=== PATIENT | male | born 1960 | race African-American/Black ===

== ENCOUNTER 2016-12-10 19:25 | Inpatient (IN) | payer OTHER ==
[~2016-12-10] VITALS: Ht 177.8 cm; Wt 85.3 kg
--- NOTE | 2016-12-10 19:35 | NUR ---
To bed 8 a 56 yo male bibself with c/o LLO abdl cramps s/p "swallowed a toothpick 4 days ago."AAOx4, ambulatory. No s/s of acute distress. Breathing even and unlabored. Skin warm and dry. VSS. Gowned. Awaiting for er md barkley.
--- NOTE | 2016-12-10 19:35 | NUR ---
To bed 8 a 56 yo male bibself with c/o LLQ abdl cramps for 3 days, worse today, s/p swallowed a toothpick 4 days ago. Patient is aaox3, no s/s of acute distress. Breathing even and unlabored. Reports tenderness if palpated on the area at 10/10. Skin warm and dry. Comfort measures rendered. Awaiting for er md barkley.
[2016-12-10 19:53] LABS: BASOPHILS # (AUTO) 0.1 /CMM (0.0-0.2); BASOPHILS % (AUTO) 1.1 % (0.0-2.0); EOSINOPHILS # (AUTO) 0.3 /CMM (0.0-0.7); HEMATOCRIT 45 % (39-51); HEMOGLOBIN 14.5 g/dL (13.5-17.5); LYMPHOCYTES # (AUTO) 0.9 /CMM (0.8-4.8); LYMPHOCYTES % (AUTO) 9.8 % (20.0-44.0); MEAN CORPUSCULAR HEMOGLOBIN 26 PG (26.0-33.0); MEAN CORPUSCULAR HGB CONC 33 g/dl (31.0-36.0); MEAN CORPUSCULAR VOLUME 79 fL (80-96); MONOCYTES # (AUTO) 0.5 /CMM (0.1-1.30); NEUTROPHILS # (AUTO) 7.3 /CMM (1.8-8.9); NEUTROPHILS % (AUTO) 80.1 % (43.0-81.0); PLATELET COUNT (AUTO) 199 /CMM (150-450); RED BLOOD CELL COUNT(AUTO) 5.62 MIL/uL (4.5-6.0); WHITE BLOOD COUNT (AUTO) 9.1 K/uL (4.3-11.0)
--- NOTE | 2016-12-10 19:59 | NUR ---
Patient in ct.
[2016-12-10 20:03] LABS: CALCIUM, SERUM 8.7 mg/dL (8.5-10.1); CREATININE 1.3 mg/dL (0.6-1.3); POTASSIUM 4.3 mmol/L (3.5-5.1)
[2016-12-10 20:09] LABS: ALBUMIN 3.4 g/dL (3.4-5.0); BILIRUBIN,DIRECT 0.2 mg/dL (0.0-0.2); BILIRUBIN,TOTAL 1.1 mg/dL (0.2-1.0); TOTAL PROTEIN, SERUM 7.3 g/dL (6.4-8.2)
--- NOTE | 2016-12-10 21:24 | NUR ---
CALLED (ROOFING FOREMAN SURGEON), TRANSFERRED CALL TO
--- NOTE | 2016-12-10 21:29 | NUR ---
CALLED NURSING SUP. FOR MS BED
--- NOTE | 2016-12-10 21:29 | NUR ---
DR.TIM MIRIAM JARVIS BACKHOE OPERATOR
[2016-12-10] MEDS ORDERED: HYDROMORPHONE 1 MG/1 ML DISP.SYRIN IV ONE (21:30)
[2016-12-10] MEDS ORDERED: IV NS 0.9% 1,000 ML IV ONE (21:30)
[2016-12-10] MEDS ORDERED: FLAGYL/NS RTU 500 MG/100 ML PIGGYBACK IV ONE (21:30)
[2016-12-10] MEDS ORDERED: CEFTRIAXONE 1GM BAG (ER ONLY) 1 GM/50 ML PIGGYBACK IV ONE (21:30)
[2016-12-10] MEDS ORDERED: ONDANSETRON HCL/PF - ER 4 MG/2 ML VIAL IV ONE (21:30)
[2016-12-10] MEDS ORDERED: ONDANSETRON HCL/PF 4 MG/2 ML VIAL ONE (21:39)
[2016-12-10] MEDS ORDERED: IV SET PRIMARY 1 EA INFUS.SET MC ONE (21:39)
[2016-12-10] MEDS ORDERED: HYDROMORPHONE 1 MG/1 ML DISP.SYRIN ONE (21:39)
[2016-12-10] MEDS ORDERED: METRONIDAZOLE 500MG/ NS 100ML 100 ML IV ONE (21:39)
[2016-12-10] MEDS ORDERED: IV SET PRIMARY PUMP SET 1 EA INFUS.SET MC ONE ×2 (21:39→22:58)
[2016-12-10] MEDS ORDERED: IV NS 0.9% 1,000 ML ONE (21:39)
--- NOTE | 2016-12-10 22:00 | NUR ---
Report given to Lady Cole for admission.
[2016-12-10 22:15] VITALS: BP 162/87
--- NOTE | 2016-12-10 22:20 | NUR ---
Endorsed to Lady KAPLAN the order of Dr Orona Ceftriaxone 1gm IVPB One time.
--- NOTE | 2016-12-10 22:21 | NUR ---
Transported patient to [place] [id number], no incident noted. Patient reported reduced pain to 2/10.
[2016-12-10 22:43] LABS: INR 1.04 (0.87-1.13); PROTHROMBIN TIME 11.1 SECS (9.5-12.7)
[2016-12-10] MEDS ORDERED: CEFTRIAXONE 1 G VIAL ONE (22:51)
[2016-12-10] MEDS ORDERED: IV D5W 0 ML IV ONE (22:52)
[2016-12-10] MEDS ORDERED: IV D5W 100 ML IV ONE (22:53)
[2016-12-10] MEDS ORDERED: SECONDARY IV SET 1 EA INFUS.SET MC ONE (22:58)
[2016-12-10] MEDS ORDERED: IV D5/0.45 NACL 1,000 ML IV ONE (22:58)
[2016-12-10] MEDS ORDERED: PANTOPRAZOLE 40 MG VIAL ONE (22:59)
[2016-12-10 23:00] VITALS: BP 102/87
[2016-12-10] MEDS ORDERED: ZOLPIDEM TARTRATE 5 MG TABLET PO PRN (23:00)
[2016-12-10] MEDS ORDERED: METRONIDAZOLE 500MG/ NS 100ML 500 MG in PREMIX 1 EA IV SCH (23:00)
[2016-12-10] MEDS ORDERED: CEFTRIAXONE 2 G in IV D5W 100 ML IV SCH (23:00)
[2016-12-10] MEDS ORDERED: ONDANSETRON HCL/PF 4 MG/2 ML VIAL IVP PRN (23:00)
--- NOTE | 2016-12-10 23:00 | NUR ---
RN NOTE; ADMITTED A 56Y/O M , A, OX4. BREATHING EVENLY. NO SOB. NO DISTRESS. SKIN WARM AND DRY. RECEIVING IVF AND IV FLAGYL FROM ER. INFUSING WELL W/ NO A/R. IV SITE INTACT. STILL W/ C/O ABD PAIN. NEEDS ATTENDED. ASSISTED PT TO THE BED. VS: WNL. CALL LIGHT WITHIN REACH. WILL CONT TO MONITOR AND WILL F/U W/ MD'S ORDER.
[2016-12-10] MEDS: IV D5/0.45 NACL 1,000 ML IV PRN (23:05)
[2016-12-10] MEDS: PANTOPRAZOLE 40 MG VIAL IV SCH (23:07)
[2016-12-10] MEDS ORDERED: BUPIVACAINE 0.5 % PF 150 MG/30 ML VIAL ONE (23:14)
[2016-12-10] MEDS ORDERED: LIDOCAINE 1% INJ 50 ML MDV IJ ONE (23:14)
--- NOTE | 2016-12-10 23:39 | NUR ---
RN NOTE; PT WAS SEEN AND AND EXAMINED BY DR. NOEL AT THE BED SIDE . PT REPORTED HAVING COKE DOWN STAIRS AT THE ER . SX WAS CANCELLED BY DR. DR NOEL DUE TO NON NPO STATUS . DR. NOEL EXPLAINED THE UPCOMING PROCEDURE AND RISKS VS. BENEFITS TO THE PT AT THE BED SIDE .
[2016-12-10] MEDS ORDERED: HYDROMORPHONE INJ 2 MG/ML DISP.SYRIN ONE (23:57)
[2016-12-11] MEDS: HYDROMORPHONE INJ 2 MG/ML DISP.SYRIN IV PRN ×8 (00:02→23:03)
--- NOTE | 2016-12-11 00:05 | NUR ---
DILAUDID 1MG GIVEN ORDERED FOR C/O SEVERE ABD. PAIN. WILL CONT TO MONITOR
[2016-12-11] MEDS ORDERED: HYDROMORPHONE INJ 2 MG/ML DISP.SYRIN ONE ×2 (03:10→06:02)
--- NOTE | 2016-12-11 03:21 | NUR ---
DILAUDID 1MG GIVEN ORDERED FOR C/O SEVERE ABD. PAIN. WILL CONT TO MONITOR
--- NOTE | 2016-12-11 06:17 | NUR ---
DILAUDID 1MG GIVEN ORDERED FOR C/O SEVERE ABD. PAIN. WILL CONT TO MONITOR
[2016-12-11 06:37] LABS: BASOPHILS % (AUTO) 0.4 % (0.0-2.0); EOSINOPHILS # (AUTO) 0.3 /CMM (0.0-0.7); HEMATOCRIT 38 % (39-51); HEMOGLOBIN 12.6 g/dL (13.5-17.5); LYMPHOCYTES # (AUTO) 0.9 /CMM (0.8-4.8); MEAN CORPUSCULAR HEMOGLOBIN 26 PG (26.0-33.0); MEAN CORPUSCULAR HGB CONC 33 g/dl (31.0-36.0); MEAN CORPUSCULAR VOLUME 77 fL (80-96); MONOCYTES # (AUTO) 0.6 /CMM (0.1-1.30); NEUTROPHILS # (AUTO) 5.3 /CMM (1.8-8.9); NEUTROPHILS % (AUTO) 74.6 % (43.0-81.0); PLATELET COUNT (AUTO) 182 /CMM (150-450); RDW COEFFICIENT OF VARIATION 14.7 (11.5-15.0); RED BLOOD CELL COUNT(AUTO) 4.92 MIL/uL (4.5-6.0); WHITE BLOOD COUNT (AUTO) 7.1 K/uL (4.3-11.0)
[2016-12-11 06:44] LABS: ALBUMIN 2.9 g/dL (3.4-5.0); CALCIUM, SERUM 7.9 mg/dL (8.5-10.1); CREATININE 1.1 mg/dL (0.6-1.3); POTASSIUM 3.7 mmol/L (3.5-5.1); TOTAL PROTEIN, SERUM 6.5 g/dL (6.4-8.2)
[2016-12-11 06:49] LABS: THYROID STIMULATING HORMONE 2.658 uIU/mL (0.358-3.74)
--- NOTE | 2016-12-11 06:57 | NUR ---
RN NOTE' PT IN BED DOZING INTERMITTENT. W/ ON AND OFF C/O ABD PAIN. DILAUDID GIVEN ORDERED PER PT'S REQUEST W/ EFFECT. ASSISTED W/ ADLS. CALL LIGHT WITHIN REACH. WILL CONT TO MONITOR AND WILL ENDORSE TO AM SHIFT FOR SARWAT.
[2016-12-11] MEDS ORDERED: ATEN25TA PO (07:45)
[2016-12-11] MEDS ORDERED: ENAL10TA PO (07:45)
[2016-12-11] MEDS ORDERED: HYDR25TA4 PO (07:45)
[2016-12-11] MEDS ORDERED: ASPI81TA2 PO (07:45)
[2016-12-11 08:00] VITALS: BP 162/99
--- NOTE | 2016-12-11 08:00 | NUR ---
MS RN NOTES PATIENT IN BED RESTING NO SOB OR ACUTE DISTRESS NOTED. IV ON RIGHT AC INTACT PATIENT. BED IN LOW LOCKED POSITION. WILL CONTINUE TO MONITOR.
[2016-12-11] MEDS: PANTOPRAZOLE 40 MG VIAL IV SCH (08:44)
[2016-12-11] MEDS ORDERED: METRONIDAZOLE 500MG/ NS 100ML 500 MG in PREMIX 1 EA IV SCH (09:00)
[2016-12-11] MEDS: METRONIDAZOLE 500MG/ NS 100ML 500 MG in PREMIX 1 EA IV SCH ×3 (09:08→20:03)
--- NOTE | 2016-12-11 12:00 | NUR ---
MS RN NOTES PATIENT SEEN AND EVALUATED BY LAURA KAYE CONFIGURATION TECHNICIAN ORDERS NOTED AND CARRIED OUT.
[2016-12-11] MEDS ORDERED: HYDROCORTISONE 1% CREAM 28.35 GM TUBE TP PRN (12:30)
--- NOTE | 2016-12-11 16:00 | NUR ---
MS RN NOTES PATIENT NOTED WITH BP OF 172/89 PULSE: 61 TEMP: 97.6, O2 SATURATION OF 99. ASYMPTOMATIC, CALL PACED TO LAURA CABRERA WAITING FOR CALL BACK.
[2016-12-11 16:02] VITALS: BP 172/89
[2016-12-11] MEDS: IV D5/0.45 NACL 1,000 ML IV PRN (16:14)
[2016-12-11] MEDS: ASPIRIN 81 MG TAB.CHEW PO SCH (18:30)
--- NOTE | 2016-12-11 18:30 | NUR ---
MS RN NOTES CALL RECEIVED FROM LAURA CABRERA ORDERS NOTED TO CONTINUE HOME BP MEDICATIONS. NOTED AND CARRIED OUT. OK TO TAKE BP MEDICATIONS WITH SIP OF WATER.
[2016-12-11] MEDS: ATENOLOL 25 MG TABLET PO SCH (18:44)
[2016-12-11] MEDS: ENALAPRIL MALEATE (10 MG) 10 MG TABLET PO SCH (18:44)
[2016-12-11] MEDS: HYDROCHLOROTHIAZIDE 25 MG TABLET PO SCH (18:44)
--- NOTE | 2016-12-11 19:19 | NUR ---
MS RN NOTES PATIENT IN BED RESTING NO SOB OR ACUTE DISTRESS NOTED. ALL DUE MEDICATIONS GIVEN. ALL NEEDS MET ENDORSED CARE TO PM SHIFT, IV ON LEFT AC PATENT INTACT.
--- NOTE | 2016-12-11 19:55 | NUR ---
RN NOTES RECEIVED PX AWAKE, ALERT, ORIENTED X 3, AMBULATORY, COMPLAINING OF ABDOMINAL PAIN LEFT SIDED ACHING 10/10, IRRITABLE, SEEN TALKING WITH VISITORS; INDEPENDENTLY MOVING BY SELF IN BED; PIV PATENT AND INTACT; DENIED SOB, N/V, DIZZINESS; DISCUSSED PLAN OF CARE; REINFORCED THE NEED FOR NPO FOR SURGERY TOMORROW. DILAUDID GIVEN.
[2016-12-11 20:00] VITALS: BP 149/85
--- NOTE | 2016-12-11 21:56 | NUR ---
RN NOTES SEEN BY DR. NOEL, SPOKE WITH PX, KEPT PX NPO; ORDERED FOR CT ABD/PELVIS WITHOUT CONTRAST, HEAD RESIDENT MADE AWARE.
--- NOTE | 2016-12-11 22:30 | NUR ---
RN NOTES CT ABD/PELVIS WITHOUT CONTRAST DONE, PROCEDURE TOLERATED.
--- NOTE | 2016-12-11 23:00 | NUR ---
RN NOTES PX COMPLAINED OF PAIN LEFT ABD, CRAMPING 10/10, DILAUDID GIVEN IV.
[2016-12-11] MEDS: CEFTRIAXONE 2 G in IV D5W 100 ML IV SCH (23:04)
[2016-12-12] VITALS (9 sets, daily range): BP systolic 113–173; BP diastolic 58–88
--- NOTE | 2016-12-12 00:42 | NUR ---
RN NOTES CONDITION AND NEURO STATUS UNCHANGED; PX DENIED PAIN, SOB, N/V; CT ABD RESULT PENDING.
[2016-12-12] MEDS: HYDROMORPHONE INJ 2 MG/ML DISP.SYRIN IV PRN ×5 (05:16→19:37)
[2016-12-12] MEDS: METRONIDAZOLE 500MG/ NS 100ML 500 MG in PREMIX 1 EA IV SCH ×3 (05:20→20:50)
--- NOTE | 2016-12-12 05:27 | NUR ---
RN NOTES COMPLAINED OF LEFT SIDED SHARP ABDOMINAL PAIN 10/10 WITH FACIAL GRIMACE, DILAUDID GIVEN IV, 5 MIN AFTER PX VERBALIZED RELIEF OF PAIN; NEW PIV TO RIGHT FOREARM G20 PATENT AND INTACT; OLD PIV WITHOUT BLOOD RETURN, DISCONTINUED.
--- NOTE | 2016-12-12 06:12 | NUR ---
RN NOTES CONDITION AND NEURO STATUS UNCHANGED; DENIED PAIN, SOB, N/V; EARLY AM NEEDS ATTENDED; NO SKIN BREAKDOWN; PIV REMAINED PATENT AND INTACT; REINFORCED THE NEED TO REMAIN NPO. WILL ENDORSE TO NEXT RN.
--- NOTE | 2016-12-12 08:00 | NUR ---
MS RN NOTES PATIENT IN BED RESTING NO SOB OR ACUTE DISTRESS NOTED. PATIENT WITH PERIPHERAL IV ON RIGHT FOREARM INTACT PATENT WITH IV FLUIDS RUNNING PRESCRIBED. BED IN LOW LOCKED POSITION. CALL LIGHT WITHIN REACH. WILL CONTINUE TO MONITOR.
[2016-12-12] MEDS: PANTOPRAZOLE 40 MG VIAL IV SCH (08:21)
[2016-12-12] MEDS: ENALAPRIL MALEATE (10 MG) 10 MG TABLET PO SCH (09:00)
[2016-12-12] MEDS: ASPIRIN 81 MG TAB.CHEW PO SCH (09:00)
[2016-12-12] MEDS: HYDROCHLOROTHIAZIDE 25 MG TABLET PO SCH (09:00)
[2016-12-12] MEDS: ATENOLOL 25 MG TABLET PO SCH (09:00)
[2016-12-12] MEDS ORDERED: HYDROMORPHONE INJ 2 MG/ML DISP.SYRIN ONE (09:27)
[2016-12-12] MEDS ORDERED: MIDAZOLAM HCL 2 MG/2ML VIAL ONE (09:27)
[2016-12-12] MEDS ORDERED: FENTANYL PF 100MCG/2ML AMPUL ONE (09:28)
[2016-12-12] MEDS ORDERED: CLINDAMYCIN 900 MG/6 ML VIAL ONE (09:28)
[2016-12-12] MEDS ORDERED: SUCCINYLCHOLINE CHLORIDE 20 MG/ML VIAL ONE (09:28)
[2016-12-12] MEDS ORDERED: ROCURONIUM BROMIDE 50 MG/5 ML ONE (09:28)
[2016-12-12] MEDS ORDERED: DESFLURANE 240 ML BOTTLE IH ONE (12:13)
--- NOTE | 2016-12-12 12:20 | NUR ---
MS RN NOTES PATIENT TRANSFERRED TO OR FOR SCHEDULED SURGERY.
[2016-12-12] MEDS ORDERED: BUPIVACAINE MPF 0.5% W/EPI INJ 30 ML VIAL ONE (13:10)
[2016-12-12] MEDS ORDERED: EPINEPHRINE (1:1000) MDV 30 MG/30ML VIAL ONE (13:35)
--- NOTE | 2016-12-12 14:00 | NUR ---
MS RN NOTES PATIENT RETURNED FROM SURGERY ALERT, CONFUSED. IN STABLE CONDITION. NO SOB OR ACUTE DISTRESS NOTED. DRESSING INTACT PATENT ON ABDOMEN. WITH MARION DRAIN DRAINING SANGUINEOUS DRAINAGE. WILL CONTINUE TO MONITOR CLOSELY. VS WNL.
[2016-12-12] MEDS ORDERED: IV LR 1000 ML 1,000 ML ONE (15:27)
[2016-12-12] MEDS ORDERED: HYDROCODONE/APAP 5/325MG 1 EACH TABLET PO PRN (16:00)
[2016-12-12] MEDS ORDERED: IV SET PRIMARY PUMP SET 1 EA INFUS.SET MC ONE (16:05)
[2016-12-12] MEDS: IV LR 1000 ML 1,000 ML IV PRN (16:15)
[2016-12-12] MEDS: DOCUSATE SODIUM 100 MG CAPSULE PO SCH (17:00)
--- NOTE | 2016-12-12 18:56 | NUR ---
MS RN NOTED PATIENT IN BED RESTING NO SOB OR ACUTE DISTRESS. PATIENT IS ALERT, ORIENTED X3 WITH NO CONFUSION. PATIENT RETURNED TO BASELINE STATUS. IV INTACT PATENT ON RIGHT FOREARM. ALL DUE MEDICATIONS GIVEN. ALL NEEDS MET. WILL ENDORSE TO PM SHIFT SARWAT.
--- NOTE | 2016-12-12 19:45 | NUR ---
MS/RN OPENING NOTES PT AWAKE, A/OX4. ON ROOM AIR, NO SOB OR DISTRESS NOTED. COMPLAINING OF SHARP PAIN 8/10 TO INCISION SITE, EXACERBATED BY MOVEMENT. REQUESTING PRN PAIN MEDICATION. ADVISED HIM THAT WE NEED TO CHECK HIS VITALS SIGNS FIRST. PT VERBALIZED UNDERSTANDING. REMAINS ON NPO DIET, PT AWARE AND INFORMED HIM THAT HE WILL START CLEAR LIQUID DIET IN THE MORNING. IV TO RFA PATENT AND INTACT RUNNING IVF ORDERED. NO S/S OF INFILTRATION NOTED. BED IN LOW/LOCKED POSITION WITH CALL LIGHT IN REACH. BED RAILS UPX2. WILL CONTINUE TO MONITOR
[2016-12-12] MEDS ORDERED: CLINDAMYCIN 900 MG in IV D5W 50 ML IV SCH (21:00)
[2016-12-12] MEDS: HYDROCODONE/APAP 10/325MG 1 EA TABLET PO PRN (21:46)
--- NOTE | 2016-12-12 21:50 | NUR ---
MS/RN NOTES PT COMPLAINING OF PAIN 8/10 TO MEDIAL ABDOMEN. NORCO 10-325 OPENED BUT NOT ADMINISTERED TO PT DUE TO NPO STATUS. WASTED IN MED ROOM AND WITNESS BY RNNOÉ.
--- NOTE | 2016-12-12 22:14 | NUR ---
MS/RN NOTES PT COMPLAINING OF PAIN 04/08 AND IS REQUESTING SOMETHING FOR PAIN. INFORMED HIM THAT HIS NEXT DOSE IS IN 1 HOUR AND BECAME UPSET. HAS BEEN AGITATED SINCE HE CANNOT EAT OR DRINK ANYTHING. INFORMED STEVE PINEDA AND OKAY TO GIVE ONE TIME DOSE OF DILAUDID 1MG IV. ORDERS NOTED AND CARRIED OUT.
[2016-12-12] MEDS ORDERED: HYDROMORPHONE 1 MG/1 ML DISP.SYRIN ONE (22:23)
[2016-12-12] MEDS ORDERED: HYDROMORPHONE 1 MG/1 ML DISP.SYRIN IV ONE (22:30)
--- NOTE | 2016-12-12 23:00 | NUR ---
MS/RN NOTES PT IV SITE INFILTRATED. NEW IV INSERTED TO LEFT HAND #22. ONE TIME DOSE OF DILAUDID ADMINISTERED.
[2016-12-12] MEDS ORDERED: SECONDARY IV SET 1 EA INFUS.SET MC ONE (23:48)
[2016-12-12] MEDS: CEFTRIAXONE 2 G in IV D5W 100 ML IV SCH (23:53)
[2016-12-13] MEDS: HYDROMORPHONE INJ 2 MG/ML DISP.SYRIN IV PRN ×6 (02:40→23:27)
[2016-12-13 02:45] VITALS: BP 164/70
--- NOTE | 2016-12-13 02:46 | NUR ---
MS/RN NOTES PT COMPLAINING OF PAIN 8/10 TO ABDOMEN. ADMINISTERED PRN DILAUDID 1MG IV. RE=[phone], HR=[id number]
[2016-12-13] MEDS: IV LR 1000 ML 1,000 ML IV PRN (03:29)
[2016-12-13] MEDS: METRONIDAZOLE 500MG/ NS 100ML 500 MG in PREMIX 1 EA IV SCH ×3 (05:33→21:03)
--- NOTE | 2016-12-13 05:49 | NUR ---
MS/RN NOTES TRIED LOGGING INTO [employer]PUTER TO ADMINISTER SCHEDULED FLAGYL AND PRN DILAUDID. COMPUTER WAS NOT ACCEPTING MY PASSWORD AND EVENTUALLY A POP UP SHOWED SAYING THAT I CANNOT LOG IN UNTIL I HAVE CREATED A NEW PASSWORD. IT IS NOT AVAILABLE AT THIS TIME. RN, NOÉ OFFERED TO LET ME ADMINISTER THE MEDICATIONS THROUGH HER [employer] PORTAL. I AM ABLE TO COMPLETE MY CHARTING BECAUSE I REMAINED LOGGED IN TO THE COMPUTER AT NURSES STATION
[2016-12-13 06:16] LABS: BASOPHILS % (AUTO) 0.3 % (0.0-2.0); EOSINOPHILS % (AUTO) 0.4 % (0.0-6.0); HEMATOCRIT 40 % (39-51); LYMPHOCYTES # (AUTO) 0.8 /CMM (0.8-4.8); LYMPHOCYTES % (AUTO) 10.7 % (20.0-44.0); MEAN CORPUSCULAR HEMOGLOBIN 25 PG (26.0-33.0); MEAN CORPUSCULAR HGB CONC 32 g/dl (31.0-36.0); MEAN CORPUSCULAR VOLUME 78 fL (80-96); MONOCYTES # (AUTO) 0.4 /CMM (0.1-1.30); NEUTROPHILS # (AUTO) 6.1 /CMM (1.8-8.9); NEUTROPHILS % (AUTO) 83.6 % (43.0-81.0); PLATELET COUNT (AUTO) 238 /CMM (150-450); RDW COEFFICIENT OF VARIATION 14.6 (11.5-15.0); RED BLOOD CELL COUNT(AUTO) 5.15 MIL/uL (4.5-6.0); WHITE BLOOD COUNT (AUTO) 7.3 K/uL (4.3-11.0)
[2016-12-13 07:06] LABS: CALCIUM, SERUM 8.3 mg/dL (8.5-10.1); CREATININE 1.1 mg/dL (0.6-1.3); POTASSIUM 4.2 mmol/L (3.5-5.1)
--- NOTE | 2016-12-13 07:20 | NUR ---
MS/RN CLOSING NOTES PT AWAKE, A/OX3, ON ROOM AIR, NO SOB OR DISTRESS NOTED. NOTES PAIN TO BE 5/10 AT THIS TIME. MARION DRAIN EMPTIED WITH 25ML OF SANGUINOUS FLUID. IV TO LEFT HAND PATENT AND INTACT RUNNING IVF ORDERED. MADE PT COMFORTABLE THROUGHOUT SHIFT. PT LOOKING FORWARD TO ADVANCING DIET, IS AWARE OF CLEAR LIQUID DIET THIS AM. ALL NEEDS MET AND ATTENDED TO. BED IN LOW/LOCKED POSITION. CALL LIGHT IN REACH. ENDORSED TO AM SHIFT SARWAT.
[2016-12-13 08:00] VITALS: BP 155/82
--- NOTE | 2016-12-13 08:00 | NUR ---
MS RN NOTES PATIENT IN BED RESTING NO SOB OR ACUTE DISTRESS NOTED. IV INTACT ON LEFT HAND RUNNING PRESCRIBED FLUIDS. BED IN LOW LOCKED POSITION. CALL LIGHT WITHIN REACH. WILL CONTINUE TO MONITOR.
[2016-12-13] MEDS: ENALAPRIL MALEATE (10 MG) 10 MG TABLET PO SCH (08:37)
[2016-12-13] MEDS: HYDROCHLOROTHIAZIDE 25 MG TABLET PO SCH (08:37)
[2016-12-13] MEDS: DOCUSATE SODIUM 100 MG CAPSULE PO SCH ×2 (08:37→17:53)
[2016-12-13] MEDS: ASPIRIN 81 MG TAB.CHEW PO SCH (08:37)
[2016-12-13] MEDS: ATENOLOL 25 MG TABLET PO SCH (08:38)
[2016-12-13] MEDS: PANTOPRAZOLE 40 MG VIAL IV SCH (08:39)
--- NOTE | 2016-12-13 09:00 | NUR ---
MS RN NOTES PATIENT SEEN AND EVALUATED BY LAURA CABRERA NP. ORDERS NOTED AND CARRIED OUT.
[2016-12-13 16:00] VITALS: BP 136/79
--- NOTE | 2016-12-13 18:17 | NUR ---
MS RN NOTES PATIENT IN BED RESTING NO SOB OR ACUTE DISTRESS NOTED. IV INTACT PATENT ON LEFT HAND. ALL DUE MEDICATIONS GIVEN. ALL NEEDS MET. WILL ENDORSE TO PM SHIFT SARWAT.
--- NOTE | 2016-12-13 18:28 | NUR ---
MS RN NOTES PAIN MANAGED WITH PRN MEDICATIONS.
--- NOTE | 2016-12-13 19:14 | NUR ---
MS RN NOTES PATIENT SEEN BY DR. NOEL ORDERS NOTED AND CARRIED OUT.
--- NOTE | 2016-12-13 19:30 | NUR ---
MS RN NOTES RECEIVED AWAKE,SITTING ON EDGE OF BED,S/O EX LAP YESTERDAY BY DR NOEL.DRESSING INTACT AND DRY.WITH MARION DRAIN IN PLACE DRAINING SANGUINOUS OUTPUT.CLAIMED SHE'S IN PAIN 10/10 ON PAIN SCALE, IV DILAUDID NOT EFFECTIVE GIVEN AT 1753.FACIAL GRIMACE NOTED.ABLE TO FINISH CLEAR LIQUID DIET SERVED.CALL LIGHT IN REACH,NEEDS ANTICIPATED.
--- NOTE | 2016-12-13 19:35 | NUR ---
MS RN NOTES PAIN MANAGEMENT MEDICATED WITH NORCO 10/325MG 1TAB PO FOR PAIN 06/08,PER PATIENT REQUEST.WILL MONITOR FOR RELIEF.
[2016-12-13] MEDS: HYDROCODONE/APAP 10/325MG 1 EA TABLET PO PRN (19:36)
[2016-12-13 20:00] VITALS: BP 186/90
--- NOTE | 2016-12-13 21:00 | NUR ---
MS RN NOTES DUE FLAGYL 500MG IVPB HUNG
--- NOTE | 2016-12-13 22:55 | NUR ---
MS RN NOTES BP HIGH 186/90 AT 1999,PAIN MEDS ADMINISTERED,REPEAT BP AT 2255 WAS 195/91,PULSE 58.STEVE HERNÁNDEZ DNP MADE AWARE WITH NEW ORDERS NOTED AND CARRIED OUT.
[2016-12-13] MEDS ORDERED: hydrALAZINE HCL 50 MG TABLET PO PRN (23:00)
[2016-12-13] MEDS ORDERED: hydrALAZINE HCL 50 MG TABLET ONE (23:11)
--- NOTE | 2016-12-13 23:22 | NUR ---
MS RN NOTES MEDICATED WITH HYDRALAZINE HCL 50MG PO FOR BP 195/91 ORDERED PRN FOR SBP ABOVE 170.
--- NOTE | 2016-12-13 23:27 | NUR ---
MS RN NOTES PAIN MANAGEMENT C/O ABDOMINAL PAIN 8/10 ON PAIN SCALE,DILAUDID 1MG IVP GIVEN ORDERED FOR SEVERE PAIN.WILL MONITOR FOR RELIEF.
[2016-12-13] MEDS: CEFTRIAXONE 2 G in IV D5W 100 ML IV SCH (23:47)
--- NOTE | 2016-12-13 23:50 | NUR ---
MS RN NOTES DUE ROCEPHIN 2GM IVPB HUNG
[2016-12-14] MEDS: HYDROMORPHONE INJ 2 MG/ML DISP.SYRIN IV PRN ×5 (02:47→15:58)
--- NOTE | 2016-12-14 02:47 | NUR ---
MS RN NOTES PAIN MANAGEMENT AWAKE,C/O ABDOMINAL PAIN 9/10 ON PAIN SCALE,MEDICATED WITH DILAUDID 1MG IVP ORDERED.WILL MONITOR FOR RELIEF.
[2016-12-14] MEDS: METRONIDAZOLE 500MG/ NS 100ML 500 MG in PREMIX 1 EA IV SCH ×2 (04:58→13:07)
--- NOTE | 2016-12-14 05:00 | NUR ---
MS RN NOTES DUE FLAGYL 500MG IVPB HUNG
--- NOTE | 2016-12-14 06:33 | NUR ---
MS RN NOTES PAIN MANAGEMENT C/O ABDOMINAL PAIN,8/10 ON PAIN SCALE,DILAUDID 1MG IVP ORDERED.
--- NOTE | 2016-12-14 07:15 | NUR ---
RN NOTE: RECEIVED PATIENT WHILE RESTING IN BED, A/OX 3. PATIENT BREATHING EVEN AND UNLABORED ON ROOM AIR. NO SOB. NO DISTRESS/DISCOMFORT AT THE MOMENT. PATIENTS NEEDS ATTENDED TO, SAFETY MEASURES IN PLACE, WILL CONTINUE TO MONITOR.
--- NOTE | 2016-12-14 07:25 | NUR ---
MS KAPLAN NOTES SLEPT 8 HOURS AT NIGHT.TYLENOL EFFECTIVE FOR HEADACHE.ENDORSED TO PEYMAN FOR SARWAT. Addendum: 12/14/16 at 0731 by HIPOLITO SEXTON RN ENTERED NOTES NOT FOR THIS PATIENT.
--- NOTE | 2016-12-14 07:26 | NUR ---
MS RN NOTES STILL IN PAIN,MANAGE WITH DILAUDID WITH SHORT RELIEF.IVF ON HOLD FOR NOW,PATIENT REFUSED,DR NOEL AWARE.ENDORSED TO PEYMAN KAPLAN FOR SARWAT.
[2016-12-14 08:00] VITALS: BP 164/89
[2016-12-14] MEDS: HYDROCHLOROTHIAZIDE 25 MG TABLET PO SCH (08:20)
[2016-12-14] MEDS: ASPIRIN 81 MG TAB.CHEW PO SCH (08:20)
[2016-12-14] MEDS: ENALAPRIL MALEATE (10 MG) 10 MG TABLET PO SCH (08:20)
[2016-12-14] MEDS: PANTOPRAZOLE 40 MG VIAL IV SCH (08:20)
[2016-12-14] MEDS: DOCUSATE SODIUM 100 MG CAPSULE PO SCH (08:20)
[2016-12-14] MEDS: ATENOLOL 25 MG TABLET PO SCH (08:21)
[2016-12-14 08:27] VITALS: BP 164/89
--- NOTE | 2016-12-14 08:30 | NUR ---
MS RN NOTE: ATENOLOL NOT ADMINISTERED, D/T LOW PULSE OF 56. PATIENT ALSO REFUSING IV FLUIDS AT THIS TIME. WILL CONTINUE TO MONITOR.
--- NOTE | 2016-12-14 09:42 | NUR ---
PATIENT'S BLOOD PRESSURE RECHECKED, READING 181/84. RECOMMENDED PATIENT TAKES HYDRALAZINE PRN. PATIENT REFUSING TO TAKE HYDRALAZINE AT THIS TIME DESPITE EXPLANATION OF RISKS. PATIENT STATING HIS BP IS USUALLY HIGH AND HE'S IN A LOT OF PAIN. REQUESTING DILAUDID. DILAUDID ADMINISTERED VIA IV. WILL CONTINUE TO MONITOR.
--- NOTE | 2016-12-14 13:08 | NUR ---
MS RN NOTE: PATIENT C/O SEVERE ABDOMINAL PAIN, REQUESTING DILAUDID. MEDICATION ADMINISTERED VIA IV. WILL CONTINUE TO MONITOR.
--- NOTE | 2016-12-14 13:30 | NUR ---
MS RN NOTE: CONFIRMED WITH FINANCE OFFICER, ERIKA SANCHEZ TO ORDER SOFT DIET FOR LUNCH. PATIENT TO BE DISCHARGED LATER TODAY.
--- NOTE | 2016-12-14 14:15 | NUR ---
MS RN NOTE: PATIENTS ABDOMINAL DRESSING CHANGED. WOUND PHOTO TAKEN AND PLACED IN CHART. PATIENT PLANNED FOR DISCHARGED TODAY, WILL CONTINUE TO MONITOR.
--- NOTE | 2016-12-14 16:00 | NUR ---
RN NOTE: PATIENT C/O SEVERE PAIN ONCE AGAIN, REQUESTING DILAUDID. MEDICATION GIVEN FEW MINUTES EARLY D/T PATIENT BEING DISCHARGED. NO COMPLICATIONS NOTED, WILL PROCEED WITH DISCHARGE.
--- NOTE | 2016-12-14 16:15 | NUR ---
MS RN NOTE: MARION DRAIN EMPTIED OUT, 20 ML OUTPUT FOR SHIFT. PATIENT EDUCATED ON PROPERLY USING MAROIN DRAIN AT HOME. PATIENT TO BE DISCHARGED WITH MARION DRAIN INTACT AND TO FOLLOW UP WITH SURGEON OUTPATIENT.
--- NOTE | 2016-12-14 16:30 | NUR ---
DISCHARGE NOTE: PATIENT'S EXIT CARE COMPLETED, ALL FORMS SIGNED, COPIES PLACED IN CHART. PATIENT PROVIDED WITH HAND WRITTEN RX, COPY IN CHART. PATIENT PROVIDED WITH DISCHARGE TEACHING ON PROPER WOUND CARE, MARION DRAIN AFTER CARE, AND MEDICATION COMPLIANCE. PATIENT INSTRUCTED TO F/U WITH PATIENT VERBALIZES UNDERSTANDING. PATIENT'S FRIEND TO [place] MACHINE OPERATOR PATIENT FROM HOSPITAL. IV REMOVED, ID BAND REMOVED. ALL NEEDS ATTENDED TO, PATIENT ESCORTED DOWNSTAIRS, LEFT VIA PRIVATE CAR.
[2016-12-14 16:49] VITALS: BP 164/89
== END 2016-12-14 16:30 | disposition home or self-care (01) | DRG 329 ==
LOC: ER 19:30 → MEDSG2 22:09
PROVIDERS: ADMIT Nurse Practitioner Acute Care; ATTEND Nurse Practitioner Acute Care
PROC: 0DQ80ZZ Repair Small Intestine, Open Approach (ICD-10-PCS; principal; 2016-12-12 11:45)
PROC: 0WCG0ZZ Extirpation of Matter from Peritoneal Cavity, Open Approach (ICD-10-PCS; principal; 2016-12-12 11:45)
PROC: 0DN80ZZ Release Small Intestine, Open Approach (ICD-10-PCS; principal; 2016-12-12 11:45)
DX: K63.1 Perforation of intestine (nontraumatic) (principal); K65.9 Peritonitis, unspecified; K56.5 Intestinal adhesions [bands] with obstruction (postinfection); F17.200 Nicotine dependence, unspecified, uncomplicated; I10 Essential (primary) hypertension; T18.3XXA Foreign body in small intestine, initial encounter; X58.XXXA Exposure to other specified factors, initial encounter; Y93.89 Activity, other specified; Y92.009 Unspecified place in unspecified non-institutional (private) residence as the place of occurrence of the external cause; Y99.9 Unspecified external cause status; Y24.8XXS Other firearm discharge, undetermined intent, sequela
CPT/HCPCS: 36415; 71010-TC; 80048-TC; 80053-TC; 80061-TC; 80076-TC; 82962-TC; 83735-TC; 84100-TC; 84443-TC; 85025-TC; 85610-TC; 85730-TC; 86850-TC; 87081-TC; 88300-TC; A4216; A4606; A6209; A6402; C9113; J0171; J0330; J0696; J1100; J1170; J1885; J2250; J2405; J2704; J2710; J3010; J3490; J7030; J7060; J7120; Z7610

== ENCOUNTER 2016-12-21 13:02 | Emergency (ER) | payer OTHER ==
[~2016-12-21] VITALS: Ht 175.3 cm; Wt 81.6 kg
[~2016-12-21 13:02] MED LIST: ASPI81TA2 PO; ATEN25TA PO; ENAL10TA PO; HYDR25TA4 PO
[2016-12-21 13:05] VITALS: BP 160/91
--- NOTE | 2016-12-21 13:15 | NUR ---
PT BIB SELF FOR WOUND CHECK WITH REBEKAH AND MARION DRAIN IN PLACE. PT WANTS REBEKAH AND DRAIN REMOVED, STATES THE SURGEON'S OFFICE IS TOO FAR. EDGES WELL APPROXIMATED, HEALING WELL, SCANT AMOUNT OF SEROSANGINOUS DRAINAGE IN MARION DRAIN. IN ER BED 07.
--- NOTE | 2016-12-21 13:25 | NUR ---
PAGED DR SADIE ECHAVARRIA
--- NOTE | 2016-12-21 14:22 | NUR ---
Patient discharged to home in stable condition. Written and verbal after care instructions given. Patient verbalizes understanding of instruction.
== END 2016-12-21 14:26 | disposition home or self-care (01) ==
LOC: ER 13:05
DX: Z48.02 Encounter for removal of sutures (principal); Z48.01 Encounter for change or removal of surgical wound dressing; R35.0 Frequency of micturition; I10 Essential (primary) hypertension; Z79.82 Long term (current) use of aspirin; Z88.1 Allergy status to other antibiotic agents
CPT/HCPCS: 99282; A4606; Z7610